=== PATIENT | male | born 1995 | race Caucasian/White ===

== ENCOUNTER 2025-08-21 16:55 | Emergency (ER) | payer BC, MEDICAID, OTHER ==
[~2025-08-21] VITALS: Ht 167.6 cm; Wt 70.0 kg
[2025-08-21 17:00] VITALS: O2SAT 100
[2025-08-21 22:36] LABS: CLARITY URINE TURBID (CLEAR); COLOR URINE YELLOW (YELLOW); GLUCOSE URINE NEGATIVE (NEGATIVE); KETONES URINE 1+ (NEGATIVE); LEUKOCYTE ESTERASE URINE NEGATIVE (NEGATIVE); NITRITE URINE NEGATIVE (NEGATIVE); OCCULT BLOOD URINE NEGATIVE (NEGATIVE); PH URINE 5.5 (4.5-8.0); PROTEIN URINE NEGATIVE (NEGATIVE); SPECIFIC GRAVITY URINE 1.030 (1.005-1.030); UROBILINOGEN URINE 1.0 E.U./dL (0.2-1.0)
[2025-08-21] MEDS ORDERED: IBUP-2028 MT (22:43)
[2025-08-21 22:44] LABS: BACTERIA URINE 3+; SQUAMOUS EPITHELIAL CELL URINE RARE /lpf (RARE/1+)
[2025-08-21 22:51] VITALS: BP 111/61; PULSE 68; RESP 15; TEMP 37.1; O2SAT 98
== END 2025-08-21 22:53 | disposition home or self-care (01) ==
LOC: ER 16:55
DX: N50.812 Left testicular pain (principal)
CPT/HCPCS: 76870; 81003; 93976; 99284